=== PATIENT | male | born 1985 | race Two or more races ===

== ENCOUNTER → 2025-06-02 | Emergency (ER) | payer OTHER ==
[~2025-06-02] VITALS: Ht 180.3 cm; Wt 86.2 kg
[~2025-06-02] MED LIST: CIPROFLOXACIN IN 5 % DEXTROSE 400 MG/200 ML PIGGYBAG IV ONE; FAMOTIDINE/PF 20 MG/2 ML VIAL ONE; KETOROLAC TROMETHAMINE 30 MG VIAL ONE
[2025-06-02 00:06] VITALS: BP 132/80; O2SAT 96
== END | disposition left against medical advice (07) ==
LOC: ER 00:03
DX: L97.818 Non-pressure chronic ulcer of other part of right lower leg with other specified severity (principal); I73.89 Other specified peripheral vascular diseases

== ENCOUNTER 2025-06-03 01:11 | Emergency (ER) | payer OTHER ==
[~2025-06-03] VITALS: Ht 180.3 cm; Wt 86.2 kg
[2025-06-03] MEDS ORDERED: KETOROLAC TROMETHAMINE 30 MG VIAL IV STA (03:27)
[2025-06-03] MEDS ORDERED: CIPROFLOXACIN IN 5 % DEXTROSE 400 MG/200 ML PIGGYBAG IV STA (03:27)
[2025-06-03 03:55] LABS: BASO % 0.8 % (0.1-1.2); EOS # 0.39 (0.04-0.54); EOS % 4.4 % (0.7-7.0); LYMPH # 3.27 (1.18-3.74); LYMPH % 37.1 % (19.3-53.1); MEAN PLATELET VOLUME 10.00 fl (9.4-12.4); MONO # 0.59 (0.24-0.82); MONO % 6.7 % (4.7-12.5); NEUT # 4.47 (1.56-6.13); NEUT % 50.7 % (34.0-71.1); RED CELL DISTRIBUTION WIDTH 12.3 % (11.6-14.4)
[2025-06-03 04:05] LABS: URINE APPEARANCE Clear; URINE BILIRRUBIN Negative (NEGATIVE); URINE BLOOD Negative; URINE COLOR Yellow; URINE GLUCOSE Negative (NEGATIVE); URINE KETONE Trace (NEGATIVE); URINE LEUKOCYTE Negative; URINE NITRATE Negative; URINE PROTEIN Negative (NEGATIVE); URINE UROBILINOGEN 1.0 E.U./dl
[2025-06-03 04:08] LABS: URINE BACTERIA 9.5 uL (0.0-1933); URINE EPITHELIAL CELLS 3.5 uL (0.0-38.8); URINE WBC 3.8 uL (0.0-23.2)
[2025-06-03 04:09] LABS: URINE CAST 0.14 uL (0.0-1.40); URINE RBC 0.4 uL (0.0-20.8)
[2025-06-03 04:14] LABS: INR 0.96
[2025-06-03 04:17] LABS: ALT/SGPT 81.0 U/L (12-78); AST/SGOT 50.0 U/L (15-37); BILIRUBIN TOTAL 0.17 mg/dL (0.3-1.2); BUN CREA RATIO 9.0 (7.0-25.0); CREATININE SERUM 1.52 mg/dL (0.70-1.30); GFR 51.31; GLOBULINA 3.5 G/DL (2.4-3.5); GLUCOSE FASTING 109.0 mg/dL (65-100); OSMOLALITY SERUM 284.0 MOSM/KG (275-295)
[2025-06-03] MEDS ORDERED: VANCOMYCIN HCL 1,000 MG VIAL IV SCH (19:39)
[2025-06-03] MEDS ORDERED: CEFTRIAXONE SODIUM 2,000 MG in 0.9 % SODIUM CHLORIDE 100 ML IV SCH (19:39)
[2025-06-03] MEDS ORDERED: ATORVASTATIN CALCIUM 40 MG TABLET PO SCH (19:40)
[2025-06-03] MEDS ORDERED: ACETAMINOPHEN 500 MG GEL..CAP PO PRN (19:45)
[2025-06-03] MEDS ORDERED: 0.9 % SODIUM CHLORIDE 1,000 ML IV SCH (19:45)
[2025-06-04] MEDS ORDERED: FAMOTIDINE/PF 20 MG in 0.9 % SODIUM CHLORIDE 8 ML IV PUSH SCH (09:00)
[2025-06-04] MEDS ORDERED: ENOXAPARIN SODIUM 40 MG/0.4 ML SYRINGE SUBCUTANEO SCH (09:00)
== END 2025-06-03 19:57 | disposition left against medical advice (07) ==
LOC: ER 01:17
PROVIDERS: General Practice
DX: L97.914 Non-pressure chronic ulcer of unspecified part of right lower leg with necrosis of bone (principal); I73.9 Peripheral vascular disease, unspecified; L97.918 Non-pressure chronic ulcer of unspecified part of right lower leg with other specified severity